=== PATIENT | female | born 1955 | race Caucasian/White ===

== ENCOUNTER → 2018-08-27 | Outpatient (CLI) | payer BC ==
[~2018-08-27] MED LIST: ACE3 PO; ASPI-1471 PO; AZI250 PO; AZIT-1 PO; BUPR-121 PO; CHOL200018 PO; CIP500 PO; CIT20 PO; CYC10 PO; DOXY-179 PO; ERG400 PO; ESOM20CA31 PO; FOSI20TA PO; FUR20 PO; FUR40 PO; FURO-1 PO; GLI5 PO; GLIP-137 PO; GLUCATROL PO; HYDR2TAB74 PO; IRON18TA2 PO; KET10 PO; LANI SC; LANI SQ; LOR5 PO; LOSA50TA80 PO; MET500 PO; METF-450 PO; METR-1 PO; MULT-1319 PO; NIT100 PO; OMEG500C7 PO; ONDA4TAB PO; OXYC-865 PO; PIOG45TA18 PO; POTA10CA61 PO; PRE20 PO; SUCR1TAB51 PO; TRAM-420 PO
--- NOTE | 2018-08-27 16:40 | RADIOLOGY IMAGING REPORT ---
FACILITY: [facility] [place] PATIENT NAME: Genevieve Santacruz : 1955 MR: [id number] V: [id number] EXAM DATE: ORDERING PHYSICIAN: BARBY MARTIN TECHNOLOGIST: [place] [facility] [place]: Genevieve Santacruz : 1955 Visit/Account:[id number] Date of Sevice: 08/27/2018 Exam type: TIBIA FIBULA LEFT History: Mass noted middle area of tibia Comparison: None. Findings: There is no evidence of a radiopaque mass or foreign body within the left tibia fibula or calf.. No evidence of fracture or dislocation. Incidentally noted are mild degenerative changes involving the medial compartment left knee IMPRESSION: 1. No evidence of mass or foreign body within the left tibia-fibula are calf. If patient's symptoms persist MR may be helpful Report Dictated By: Anahi Juárez MD at 08/27/2018 4:34 PM Report E-Signed By: Anahi Juárez MD at 08/27/2018 4:36 PM WSN:[id number]
== END ==
LOC: RAD 15:49
PROVIDERS: ATTEND Nurse Practitioner Family
DX: M89.262 Other disorders of bone development and growth, left tibia (principal)